=== PATIENT | female | born 1980 | race Caucasian/White ===

== ENCOUNTER 2021-03-12 08:01 | Outpatient (CLI) | payer OTHER, SELFPAY ==
--- NOTE | 2021-03-12 08:08 | MM_ITS ---
WS: [id number] SCREENING DIGITAL MAMMOGRAM WITH CAD HISTORY: SCREENING COMPARISON: None available. Bilateral CC and MLO views submitted. Computer aided detection analyzed. Breast composition: The breasts are heterogeneously dense, which may obscure small masses. Ill-define d ovoid asymmetry measuring 12 x 31 mm along the 3:00 axis of the LEFT breast. This does contain fat and may be a hamartoma. As there are no prior studies for comparison evaluation and workup should be done at this time. No suspicious mass. MM/[id number] IMPRESSION: BI-RADS: 0-Incomplete: Need additional imaging evaluation FOLLOW UP: Need Additional Imaging LEFT breast: Spot compression views (CC and MLO). True ML. Ultrasound to follow if abnormality persists.
== END 2021-03-12 08:02 | disposition home or self-care (01) ==
LOC: RADSHAW 08:05
PROVIDERS: PCP Family Medicine; Visit Provider Family Medicine
DX: Z12.31 Encounter for screening mammogram for malignant neoplasm of breast (principal)
CPT/HCPCS: 77067

== ENCOUNTER 2021-03-25 12:51 | Outpatient (CLI) | payer OTHER, SELFPAY ==
--- NOTE | 2021-03-25 13:03 | MM_ITS ---
WS: [id number] ADDITIONAL VIEWS LEFT MAMMOGRAM LEFT BREAST ULTRASOUND HISTORY: BREAST ASYMMETRY COMPARISON: 03/12/2021 LEFT MAMMOGRAM: Spot compression views and true ML. Partially obscured asymmetry in the LEFT breast persists. Ovoid mass measures 2.9 x 1.6 cm. There is fat present suggesting this is probably a hamartoma. LEFT BREAST ULTRASOUND 2-D and color Doppler imaging submitted. At 3:00, 2 cm from the nipple is a ovoid mass which is encapsulated measuring 2.5 x 2.4 x 1.2 cm. The re is fat scattered throughout this mass. 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 MM/[id number] IMPRESSION: BI-RADS: 2-Benign FOLLOW UP: 1 Year Follow-up
== END 2021-03-25 12:52 | disposition home or self-care (01) ==
LOC: RADSHAW 12:55
PROVIDERS: PCP Family Medicine; Visit Provider Family Medicine
DX: N64.89 Other specified disorders of breast (principal)
CPT/HCPCS: 76642; 77065